=== PATIENT | male | born 1995 | race Caucasian/White ===

== ENCOUNTER 2017-09-19 22:40 | Emergency (ER) | payer MEDICAID ==
[~2017-09-19] VITALS: Ht 175.3 cm; Wt 72.0 kg
[~2017-09-19 22:40] MED LIST: LEVA15HF4 INH
[2017-09-19 22:52] VITALS: BP 124/85
== END 2017-09-19 23:31 | disposition home or self-care (01) ==
LOC: ER 22:41
DX: F41.9 Anxiety disorder, unspecified (principal); F17.200 Nicotine dependence, unspecified, uncomplicated; F15.10 Other stimulant abuse, uncomplicated; Z88.0 Allergy status to penicillin
CPT/HCPCS: 99284; A6449